=== PATIENT | male | born 1970 | race Caucasian/White ===

== ENCOUNTER 2019-07-17 08:42 | Day surgery (SDC) | payer MEDICARE, MEDICAID ==
[~2019-07-17] VITALS: Ht 162.6 cm; Wt 54.5 kg
[~2019-07-17 08:42] MED LIST: DIVA125C10 PO; LEVO88TA2 PO; OMEP20CA15 PO; PHEN100C4 PO; RISP0.257 PO
[2019-07-17] MEDS ORDERED: MIDAZolam 5mg/5ml vial ONE (08:54)
[2019-07-17] MEDS ORDERED: LIDOcaine Viscous 15ml cup ONE (08:54)
[2019-07-17] MEDS ORDERED: fentaNYL/PF 50MCG/1 ML 2ML syringe ONE (08:54)
[2019-07-17 09:01] VITALS: BP 126/79
[2019-07-17] MEDS ORDERED: LEVE10002 PO (09:22)
[2019-07-17] MEDS ORDERED: OMEP-50 PO (09:23)
[2019-07-17] MEDS ORDERED: LEVO75TA7 PO (09:23)
[2019-07-17] MEDS ORDERED: RISP2TAB97 PO (09:24)
[2019-07-17] MEDS ORDERED: CETI10CA19 PO (09:25)
[2019-07-17] MEDS ORDERED: VITA80008 PO (09:28)
[2019-07-17] MEDS ORDERED: MELA5TAB12 PO (09:29)
[2019-07-17 10:56] VITALS: BP 103/68
[2019-07-17 10:58] VITALS: BP 119/72
[2019-07-17 11:08] VITALS: BP 121/75
[2019-07-17 11:18] VITALS: BP 112/80
[2019-07-17 11:26] VITALS: BP 122/78
== END 2019-07-17 11:30 | disposition home or self-care (01) ==
LOC: GI LAB 08:42
PROVIDERS: ATTEND Internal Medicine Gastroenterology
DX: R13.10 Dysphagia, unspecified (principal); K29.50 Unspecified chronic gastritis without bleeding; K31.7 Polyp of stomach and duodenum; K44.9 Diaphragmatic hernia without obstruction or gangrene
CPT/HCPCS: 43239; 43450; J2250; J3010; J7040; 43233; 99152; A4620